=== PATIENT | male | born 1970 | race Two or more races ===

== ENCOUNTER 2023-03-27 00:08 | Emergency (ER) | payer MEDICAID ==
[~2023-03-27] VITALS: Ht 154.9 cm; Wt 75.0 kg
[2023-03-27 00:09] VITALS: BP 145/80; PULSE 88; RESP 18; TEMP 99.4
[2023-03-27] MEDS ORDERED: ONDANSETRON HCL 4 MG TABLET PO ONE (00:15)
[2023-03-27] MEDS ORDERED: ACETAMINOPHEN 500 MG TABLET PO ONE (00:15)
[2023-03-27 00:38] LABS: EOSINOPHILS % (AUTO) 1.9 % (1.0-6.0); HEMATOCRIT 39.1 % (41-53); HEMOGLOBIN 13.3 g/dL (13.5-17.5); LYMPHOCYTES # (AUTO) 1.6 K/uL (1.0-4.8); LYMPHOCYTES % (AUTO) 24.5 % (22.0-44.0); MEAN CORPUSCULAR HEMOGLOBIN 29.6 pg (26.0-34.0); MEAN CORPUSCULAR VOLUME 87 fL (80-100); MONOCYTES # (AUTO) 0.7 K/uL (0.1-1.0); MONOCYTES % (AUTO) 10.5 % (2.0-9.0); NEUTROPHILS # (AUTO) 4.2 K/uL (1.8-7.7); NEUTROPHILS % (AUTO) 62.1 % (40.0-70.0); PLATELET COUNT (AUTO) 227 K/uL (150-450); RED CELL DISTRIBUTION WIDTH 12.9 % (11.5-14.5); WHITE BLOOD COUNT (AUTO) 6.7 K/uL (4.5-11.0)
[2023-03-27 00:50] LABS: ANION GAP 5 mmol/L (8-16); CALCIUM, TOTAL 9.4 mg/dL (8.8-10.5); CARBON DIOXIDE 28 mmol/L (22-29); CHLORIDE 102 mmol/L (98-107); CREATININE 0.99 mg/dL (0.60-1.30); GLOMERULAR FILTR. RATE CALC > 60 mL/min (>60); GLUCOSE,RANDOM 119 mg/dL (70-110); POTASSIUM 4.1 mmol/L (3.5-5.1); SODIUM SERUM 135 mmol/L (136-145); UREA NITROGEN, BLOOD 16 mg/dL (7-18)
[2023-03-27 00:55] LABS: ALANINE AMINOTRANSFERASE 29 U/L (12-78); ALBUMIN 3.7 g/dL (3.4-5.0); ALKALINE PHOSPHATASE 66 U/L (46-116); ASPARTATE AMINOTRANSFERASE 23 U/L (15-37); BILIRUBIN,TOTAL 0.3 mg/dL (0.1-1.0); LIPASE 67 U/L (16-77); TOTAL PROTEIN, SERUM 8.3 g/dL (6.4-8.2); TROPONIN I-HIGH SENSITIVITY 4 ng/L (<76)
[2023-03-27] MEDS ORDERED: PB/HYOSCY/ATR/SCOP/LIDO/MAALOX 55 ML BOTTLE PO ONE (01:15)
[2023-03-27 01:20] LABS: COVID AG,FIA SOURCE NASAL SWAB
[2023-03-27 01:42] LABS: INFLUENZA TYPE A NEGATIVE FOR TYPE A (NEGATIVE); INFLUENZA TYPE B NEGATIVE FOR TYPE B (NEGATIVE)
[2023-03-27 01:42] LABS: SARS-COV2 (COVID) ANTIGEN,FIA Negative (Negative)
[2023-03-27] MEDS ORDERED: GUAIFDM PO (02:26)
[2023-03-27] MEDS ORDERED: ACET-66 PO (02:26)
[2023-03-27] MEDS ORDERED: MAG30ORA11 PO (02:26)
[2023-03-27] MEDS ORDERED: OMEP20 PO (02:26)
== END 2023-03-27 03:08 | disposition home or self-care (01) ==
LOC: EMS 00:09
DX: K29.70 Gastritis, unspecified, without bleeding (principal); B96.89 Other specified bacterial agents as the cause of diseases classified elsewhere; J06.9 Acute upper respiratory infection, unspecified; R07.89 Other chest pain; Z20.822 Contact with and (suspected) exposure to COVID-19
CPT/HCPCS: 99285; 71045; 87426; 80053; 83690; 84484; 85025; 87804; 36415; 93005; Q0162